=== PATIENT | female | born 1955 | race Two or more races ===

== ENCOUNTER 2023-10-14 19:06 | Emergency (ER) | payer OTHER, SELFPAY ==
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
[2023-10-14 19:19] VITALS: BP 142/78; PULSE 76; RESP 20; TEMP 36.4; O2SAT 100; BMI 23.4
[2023-10-14 19:20] VITALS: BP 132/64; PULSE 68; O2SAT 100
[2023-10-14] MEDS: Acetaminophen 325 MG TABLET 975 MG PO (20:48)
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
[2023-10-14 20:57] VITALS: BP 134/66; PULSE 68; RESP 18; TEMP 36.8; O2SAT 98
--- NOTE | 2023-10-14 21:12 | PC.NURSE ---
pt ambulated to the bathroom independently, steady/even gait. family at bedside. pt medicated per JAN. C collar removed by
== END 2023-10-14 22:40 | disposition home or self-care (01) ==
PROVIDERS: Emergency Provider Emergency Medicine
DX: S13.4XXA Sprain of ligaments of cervical spine, initial encounter (principal); S79.911A Unspecified injury of right hip, initial encounter; M54.50 Low back pain, unspecified; M54.2 Cervicalgia; R51.9 Headache, unspecified; M25.551 Pain in right hip; V43.62XA Car passenger injured in collision with other type car in traffic accident, initial encounter; Y93.9 Activity, unspecified; Y92.410 Unspecified street and highway as the place of occurrence of the external cause; Y99.9 Unspecified external cause status
CPT/HCPCS: 70450; 71045; 72125; 73502; 99284